=== PATIENT | male | born 1990 | race Caucasian/White ===

== ENCOUNTER 2016-12-22 | Emergency (ER) | payer OTHER ==
[2016-12-22 00:03] VITALS: BP 139/71
== END 2016-12-22 00:46 | disposition home or self-care (01) ==
LOC: ED
DX: L04.1 Acute lymphadenitis of trunk (principal); F41.9 Anxiety disorder, unspecified; Z79.899 Other long term (current) drug therapy; Z88.6 Allergy status to analgesic agent
CPT/HCPCS: 36415; 87491; 87591

== ENCOUNTER 2017-03-03 00:43 | Emergency (ER) | payer OTHER ==
[2017-03-03 03:59] VITALS: BP 169/83
== END 2017-03-03 03:59 | disposition home or self-care (01) ==
LOC: ED 00:43
DX: K04.7 Periapical abscess without sinus (principal)
CPT/HCPCS: J1885; J2001

== ENCOUNTER 2017-06-30 19:56 | Emergency (ER) | payer OTHER ==
[~2017-06-30] VITALS: Ht 188 cm; Wt 106.1 kg
[2017-06-30 20:16] VITALS: Ht 188 cm; Wt 106.1 kg
[2017-07-01 00:16] VITALS: BP 133/84
== END 2017-07-01 00:16 | disposition home or self-care (01) ==
LOC: ED 19:56
DX: M51.36 Other intervertebral disc degeneration, lumbar region (principal); Z88.8 Allergy status to other drugs, medicaments and biological substances; Z98.890 Other specified postprocedural states
CPT/HCPCS: J1885; J2270; Q0162

== ENCOUNTER 2017-09-14 19:14 | Emergency (ER) | payer OTHER ==
[~2017-09-14] VITALS: Ht 188 cm; Wt 110.2 kg
[2017-09-14 19:32] VITALS: Ht 188 cm; Wt 110.2 kg
[2017-09-14 22:33] LABS: microscopic required? NO
[2017-09-14] MEDS ORDERED: LISINOPRIL10 MG PO (22:37)
[2017-09-14] MEDS ORDERED: ASPIRIN ADULT L81 M5 PO (22:37)
[2017-09-14] MEDS ORDERED: MICROZIDE12.5 MG PO (22:37)
[2017-09-14] MEDS ORDERED: VENLAFAXINE H37.5 MG PO (22:38)
[2017-09-14 22:42] LABS: BASOPHIL % 0.3 % (0-2); PLATELET COUNT 310 x10^3mcL (130-400); RED CELL DISTRIBUTION WIDTH 13.5 % (11.5-14.5)
[2017-09-14 22:54] LABS: CALCIUM 8.1 mg/dL (8.5-10.1); CARBON DIOXIDE 29.5 mmol/L (21-32); CHLORIDE SERUM 106 mmol/L (98-107); CREATININE SERUM 0.9 mg/dL (0.7-1.3); GFR1 > 60 mL/min; GLUCOSE SERUM 89 mg/dL (74-106); POTASSIUM SERUM 3.7 mmol/L (3.5-5.1); SODIUM SERUM 139 mmol/L (136-145)
[2017-09-14 22:59] LABS: ALBUMIN 3.8 g/dL (3.4-5.0); ALKALINE PHOSPHATASE 96 U/L (46-116); ALT/SGPT 60 U/L (16-63); AST/SGOT 48 U/L (15-37); BILIRUBIN TOTAL 0.2 mg/dL (0.20-1.00); MAGNESIUM 1.9 mg/dL (1.8-2.4); TOTAL PROTEIN, SERUM 7.1 g/dL (6.4-8.2)
[2017-09-14 23:00] LABS: urine erythrocyte NEGATIVE (NEGATIVE)
[2017-09-14 23:13] VITALS: BP 154/96
== END 2017-09-14 23:13 | disposition left against medical advice (07) ==
LOC: ED 19:14
PROVIDERS: Emergency Medicine
DX: M62.838 Other muscle spasm (principal); R20.2 Paresthesia of skin; Z88.4 Allergy status to anesthetic agent
CPT/HCPCS: 36415

== ENCOUNTER 2019-01-08 19:19 | Emergency (ER) | payer OTHER ==
[~2019-01-08] VITALS: Ht 157.5 cm; Wt 122.0 kg
[~2019-01-08 19:19] MED LIST: ASPIRIN ADULT L81 M5 PO; LISINOPRIL10 MG PO; MICROZIDE12.5 MG PO; VENLAFAXINE H37.5 MG PO
[2019-01-08 21:38] VITALS: BP 137/70
== END 2019-01-08 21:38 | disposition home or self-care (01) ==
LOC: ED 19:19
DX: L03.116 Cellulitis of left lower limb (principal); F41.9 Anxiety disorder, unspecified
CPT/HCPCS: J0696; J1885